=== PATIENT | male | born 1960 | race African-American/Black ===

== ENCOUNTER 2016-10-10 07:22 | Emergency (ER) | payer MEDICAID, OTHER ==
[~2016-10-10] VITALS: Ht 177.8 cm; Wt 90.0 kg
[2016-10-10] MEDS ORDERED: METHYLPREDNISOLONE SOD SUCC 125 MG/2 ML VIAL IV STA (07:33)
[2016-10-10] MEDS ORDERED: IPRATROPIUM/ALBUTEROL 0.5-3(2.5)MG/3ML NEB HHN ONE (07:45)
[2016-10-10] MEDS ORDERED: ASPIRIN 81MG TABLET PO ONE (07:45)
[2016-10-10 08:04] LABS: MEAN CORPUSCULAR HEMOGLOBIN 22.9 pg (28.0-32.0); MEAN CORPUSCULAR HGB CONC 32.6 g/dL (31.0-37.0); MEAN CORPUSCULAR VOLUME 70.2 fL (80.0-94.0); MEAN PLATELET VOLUME 8.4 fl (7.4-10.4); PLATELET 231 x1000/uL (130-400); RED BLOOD CELL COUNT 6.13 mill/uL (4.7-6.1); RED CELL DISTRIBUTION WIDTH 15.6 % (11.6-14.6); WHITE BLOOD COUNT 6.8 x1000/uL (4.5-11.0)
[2016-10-10 08:05] LABS: DIFFERENTIAL COMMENT 1
[2016-10-10 08:12] LABS: PROTHROMBIN TIME 10.4 sec
[2016-10-10 08:18] LABS: ALANINE AMINOTRANSFERASE 21 IU/L (13-61); ALBUMIN 3.7 g/dL (3.4-5.0); ANION GAP 12; CALCIUM 9.5 mg/dL (8.5-10.1); CARBON DIOXIDE 30 mEq/L (21-32); CHLORIDE 102 mEq/L (98-107); INDEX HEMOLYSI 1 (1-3); INDEX ICTERIC 1 (1-4); INDEX LIPEMIC 1 (1-3); NT PRO B-TYPE NATRIURETIC PEP 42 pg/mL (5-125); TROPONIN I < 0.02 ng/mL (0.00-0.04); UREA NITROGEN BLOOD 12 mg/dL (7-21); eGFR > 60 mL/min (>60)
[2016-10-10 08:36] LABS: CLARITY URINE CLEAR (CLEAR); COLOR URINE YELLOW (YELLOW); GLUCOSE URINE NEGATIVE (NEGATIVE); KETONES URINE NEGATIVE (NEGATIVE); LEUKOCYTE ESTERASE URINE NEGATIVE (NEGATIVE); NITRITE URINE NEGATIVE (NEGATIVE); OCCULT BLOOD URINE NEGATIVE (NEGATIVE); PROTEIN URINE NEGATIVE (NEGATIVE); SPECIFIC GRAVITY URINE 1.016 (1.005-1.030); UROBILINOGEN URINE 0.2 E.U./dL (0.2-1.0)
[2016-10-10 08:59] VITALS: BP 147/93
[2016-10-10 09:17] LABS: ANISOCYTOSIS 1+; HYPOCHROMASIA 1+; PLATELET ESTIMATE NORMAL
== END 2016-10-10 12:01 | disposition home or self-care (01) ==
LOC: ER 07:34
DX: R06.02 Shortness of breath (principal); J45.909 Unspecified asthma, uncomplicated
CPT/HCPCS: 36415; 71010; 80053; 81003; 83880; 84484; 85025; 85610; 93005; 94640; 96374; 99285; J2930; Z7610; J7620

== ENCOUNTER 2017-09-05 20:55 | Emergency (ER) | payer BC, OTHER ==
[~2017-09-05] VITALS: Ht 170.2 cm; Wt 111.0 kg
[2017-09-05] MEDS ORDERED: IPRATROPIUM BROMIDE (0.02%) 0.5MG/2.5ML NEB HHN STA (21:17)
[2017-09-05] MEDS ORDERED: METHYLPREDNISOLONE SOD SUCC 125 MG/2 ML VIAL IV STA (21:17)
[2017-09-05] MEDS: ALBUTEROL (0.083%) 2.5MG/3ML NEB HHN SCH ×3 (22:13→23:15)
[2017-09-06 00:39] VITALS: BP 169/88
[2017-09-06] MEDS ORDERED: ALBUTEROL (0.083%) 2.5MG/3ML NEB HHN ONE (01:00)
[2017-09-06] MEDS ORDERED: ACETAMINOPHEN 325MG TABLET PO ONE (01:45)
== END 2017-09-06 01:58 | disposition home or self-care (01) ==
LOC: ER 21:27 → CANBEDREQ 09-06 05:53
DX: J44.1 Chronic obstructive pulmonary disease with (acute) exacerbation (principal)
CPT/HCPCS: 94640; 96374; 99285; J2930; J7611

== ENCOUNTER 2017-10-05 02:18 | Inpatient (IN) | payer BC, MEDICAID ==
[~2017-10-05] VITALS: Ht 170.2 cm; Wt 125.8 kg
[2017-10-05] MEDS ORDERED: ALBUTEROL (0.083%) 2.5MG/3ML NEB HHN STA ×2 (02:42→05:25)
[2017-10-05] MEDS ORDERED: MAGNESIUM 2 G PREMIX 50 ML IV STA (02:42)
[2017-10-05] MEDS ORDERED: METHYLPREDNISOLONE SOD SUCC 125 MG/2 ML VIAL IV STA (02:42)
[2017-10-05] MEDS ORDERED: IPRATROPIUM BROMIDE (0.02%) 0.5MG/2.5ML NEB HHN STA ×2 (02:42→05:25)
[2017-10-05] MEDS ORDERED: ALBUTEROL (0.5%) 2.5MG/0.5ML NEB HHN ONE (03:00)
[2017-10-05 06:39] VITALS: BP 168/94
[2017-10-05 08:00] VITALS: BP 167/93
[2017-10-05 12:00] VITALS: BP 172/98
[2017-10-05 13:30] LABS: HEMATOCRIT. 44.4 % (42.0-52.0); HEMOGLOBIN. 14.6 g/dL (14.0-18.0); MEAN CORPUSCULAR HEMOGLOBIN 23.1 pg (28.0-32.0); MEAN CORPUSCULAR VOLUME 69.9 fL (80.0-94.0); MEAN PLATELET VOLUME 8.6 fl (7.4-10.4); PLATELET 229 x1000/uL (130-400); RED BLOOD CELL COUNT 6.35 mill/uL (4.7-6.1); RED CELL DISTRIBUTION WIDTH 17.2 % (11.6-14.6)
[2017-10-05] MEDS ORDERED: ACETAMINOPHEN 325MG TABLET PO PRN (13:45)
[2017-10-05] MEDS ORDERED: ENOXAPARIN 40MG/0.4ML SYR SUBCUT SCH (13:45)
[2017-10-05] MEDS ORDERED: ONDANSETRON HCL 4MG/2ML VIAL IV PRN (13:45)
[2017-10-05] MEDS ORDERED: IPRATROPIUM/ALBUTEROL 0.5-3(2.5)MG/3ML NEB INH PRN (13:45)
[2017-10-05 14:14] LABS: CHLORIDE 104 mEq/L (98-107)
[2017-10-05] MEDS: METHYLPREDNISOLONE SOD SUCC 40 MG/ML VIAL IV SCH ×2 (14:36→20:36)
[2017-10-05] MEDS: PREDNISONE 20MG TABLET PO SCH (14:37)
[2017-10-05] MEDS ORDERED: LEVOFLOXACIN 500MG PREMIX 100 ML IV SCH (15:00)
[2017-10-05 15:25] LABS: BG CARBOXYHEMOGLOBIN 1.1 % (0.5-1.5); BG DEOXYHEMOGLOBIN 9.1 % (0.0-5.0); BG FRACTION INSPIRED OXYGEN 21; BG HCO3 ACT 24.4 mmol/L (22.0-26.0); BG METHEMOGLOBIN 0.2 % (0.0-1.5); BG OXYGEN SATURATION 90.8 % (92.0-98.5); BG OXYHEMOGLOBIN 89.6 % (94.0-97.0); BG PCO2 39.1 mmHg (35.0-45.0); BG PH 7.413 (7.350-7.450); BG PO2 59.9 mmHg (75.0-100.0); BG SAMPLE SITE RIGHT RADIAL; BG TOTAL HEMOGLOBIN 14.6 g/dL (12.0-18.0); BG VENT MODE ROOM AIR
[2017-10-05 16:00] VITALS: BP 161/97
[2017-10-05 16:00] LABS: CREATINE KINASE 728 IU/L (39-308)
[2017-10-05] MEDS: HYDROCODONE/ACETAMINOPHEN 5/325MG TABLET PO PRN ×2 (16:36→20:40)
[2017-10-05] MEDS: ENOXAPARIN 30MG/0.3ML SYR SUBCUT SCH (16:37)
[2017-10-05 20:00] VITALS: BP 165/108
[2017-10-05] MEDS: CLONIDINE 0.1MG TABLET PO PRN (20:36)
[2017-10-05 22:00] VITALS: BP 137/91
[2017-10-05] MEDS: AMLODIPINE 5MG TABLET PO SCH (23:04)
[2017-10-05 23:26] LABS: CREATINE KINASE 653 IU/L (39-308)
[2017-10-06] VITALS (9 sets, daily range): BP systolic 143–161; BP diastolic 63–99
[2017-10-06 00:16] LABS: PLATELET ESTIMATE NORMAL
[2017-10-06] MEDS: IPRATROPIUM/ALBUTEROL 0.5-3(2.5)MG/3ML NEB HHN SCH ×6 (00:27→21:40)
[2017-10-06] MEDS: HYDROCODONE/ACETAMINOPHEN 5/325MG TABLET PO PRN ×3 (01:07→22:11)
[2017-10-06] MEDS: CLONIDINE 0.1MG TABLET PO PRN (05:13)
[2017-10-06 05:59] LABS: HEMATOCRIT. 39.3 % (42.0-52.0); HEMOGLOBIN. 12.8 g/dL (14.0-18.0); MEAN CORPUSCULAR HEMOGLOBIN 22.5 pg (28.0-32.0); MEAN CORPUSCULAR VOLUME 69.4 fL (80.0-94.0); MEAN PLATELET VOLUME 9.3 fl (7.4-10.4); PLATELET 227 x1000/uL (130-400); RED BLOOD CELL COUNT 5.67 mill/uL (4.7-6.1); RED CELL DISTRIBUTION WIDTH 16.9 % (11.6-14.6)
[2017-10-06] MEDS: METHYLPREDNISOLONE SOD SUCC 40 MG/ML VIAL IV SCH ×3 (06:18→22:11)
[2017-10-06] MEDS: ENOXAPARIN 30MG/0.3ML SYR SUBCUT SCH ×2 (06:18→17:57)
[2017-10-06 06:56] LABS: CHLORIDE 102 mEq/L (98-107)
[2017-10-06 07:13] LABS: LDL CHOLESTEROL 80 mg/dL (5-100)
[2017-10-06 07:15] LABS: HDL CHOLESTEROL 63 mg/dL (40-59)
[2017-10-06 07:16] LABS: T4 FREE 1.16 ng/dL (0.76-1.46)
[2017-10-06] MEDS: PREDNISONE 20MG TABLET PO SCH (09:47)
[2017-10-06] MEDS: AMLODIPINE 5MG TABLET PO SCH ×2 (09:47→22:09)
[2017-10-06] MEDS: LEVOFLOXACIN 500MG PREMIX 100 ML IV SCH (16:04)
[2017-10-06 17:59] LABS: PLATELET ESTIMATE NORMAL
[2017-10-07] VITALS: BP 144/84
[2017-10-07] MEDS: IPRATROPIUM/ALBUTEROL 0.5-3(2.5)MG/3ML NEB HHN SCH ×5 (01:32→15:01)
[2017-10-07 04:00] VITALS: BP 153/99
[2017-10-07] MEDS: HYDROCODONE/ACETAMINOPHEN 5/325MG TABLET PO PRN ×4 (05:00→18:12)
[2017-10-07] MEDS: ENOXAPARIN 30MG/0.3ML SYR SUBCUT SCH ×2 (06:32→18:00)
[2017-10-07] MEDS: METHYLPREDNISOLONE SOD SUCC 40 MG/ML VIAL IV SCH ×2 (06:32→13:25)
[2017-10-07 08:00] VITALS: BP 135/86
[2017-10-07] MEDS: AMLODIPINE 5MG TABLET PO SCH (09:02)
[2017-10-07] MEDS: PREDNISONE 20MG TABLET PO SCH (09:02)
[2017-10-07 12:00] VITALS: BP 145/90
[2017-10-07 15:52] LABS: HEMATOCRIT. 43.8 % (42.0-52.0); HEMOGLOBIN. 14.4 g/dL (14.0-18.0); MEAN CORPUSCULAR HEMOGLOBIN 22.7 pg (28.0-32.0); MEAN CORPUSCULAR VOLUME 69.1 fL (80.0-94.0); MEAN PLATELET VOLUME 8.8 fl (7.4-10.4); PLATELET 259 x1000/uL (130-400); RED BLOOD CELL COUNT 6.34 mill/uL (4.7-6.1); RED CELL DISTRIBUTION WIDTH 16.9 % (11.6-14.6)
[2017-10-07 15:58] LABS: CHLORIDE 101 mEq/L (98-107)
[2017-10-07 16:00] VITALS: BP 149/76
[2017-10-07] MEDS: LEVOFLOXACIN 500MG PREMIX 100 ML IV SCH (16:03)
[2017-10-07 21:42] LABS: ATYPICAL LYMPHOCYTES 3; PLATELET ESTIMATE NORMAL
== END 2017-10-07 18:50 | disposition home or self-care (01) | DRG 189 ==
LOC: ER 02:18 → 5EST 02:57 → ENRESERV 03:41 → 7WST 10-06 23:09
PROVIDERS: ADMIT Internal Medicine; ATTEND Internal Medicine
PROC: 5A09357 Assistance with Respiratory Ventilation, Less than 24 Consecutive Hours, Continuous Positive Airway Pressure (ICD-10-PCS; principal; 2017-10-05)
DX: J96.20 Acute and chronic respiratory failure, unspecified whether with hypoxia or hypercapnia (principal); J45.901 Unspecified asthma with (acute) exacerbation; J44.9 Chronic obstructive pulmonary disease, unspecified; Z68.41 Body mass index [BMI] 40.0-44.9, adult; I10 Essential (primary) hypertension; E66.9 Obesity, unspecified; Z79.899 Other long term (current) drug therapy
CPT/HCPCS: 36415; 36600; 71045; 80048; 80053; 80061; 82375; 82550; 82805; 84439; 84443; 84484; 85025; 93306; 93970; 94618; 94640; 94644; 96365; 96366; 96375; 99285; J1650; J1956; J2920; J2930; J3475; J7040; J7050; J7512; J7611; J7620

== ENCOUNTER 2017-10-28 12:16 | Inpatient (IN) | payer BC, MEDICAID ==
[~2017-10-28] VITALS: Ht 172.7 cm; Wt 125.2 kg
[2017-10-28] MEDS ORDERED: ALBUTEROL (0.083%) 2.5MG/3ML NEB HHN STA ×2 (12:25→14:52)
[2017-10-28] MEDS ORDERED: METHYLPREDNISOLONE SOD SUCC 125 MG/2 ML VIAL IV STA (12:25)
[2017-10-28] MEDS ORDERED: IPRATROPIUM BROMIDE (0.02%) 0.5MG/2.5ML NEB HHN STA (12:25)
[2017-10-28] MEDS ORDERED: LORAZEPAM 2MG/ML CPJ IV ONE (12:30)
[2017-10-28] MEDS ORDERED: ALBUTEROL (0.5%) 2.5MG/0.5ML NEB HHN ONE (12:45)
[2017-10-28 13:16] LABS: HEMATOCRIT. 37.2 % (42.0-52.0); HEMOGLOBIN. 12.2 g/dL (14.0-18.0); MEAN CORPUSCULAR HEMOGLOBIN 22.8 pg (28.0-32.0); MEAN CORPUSCULAR VOLUME 69.4 fL (80.0-94.0); MEAN PLATELET VOLUME 8.6 fl (7.4-10.4); PLATELET 177 x1000/uL (130-400); RED BLOOD CELL COUNT 5.36 mill/uL (4.7-6.1); RED CELL DISTRIBUTION WIDTH 16.3 % (11.6-14.6)
[2017-10-28 13:20] LABS: CHLORIDE 107 mEq/L (98-107)
[2017-10-28 13:21] LABS: PROTHROMBIN TIME 10.3 sec (9.4-11.6)
[2017-10-28 13:38] LABS: PLATELET ESTIMATE NORMAL
[2017-10-28] MEDS ORDERED: GUAIFENESIN 200MG/10ML SUGAR FREE UDC PO PRN (17:30)
[2017-10-28] MEDS ORDERED: IPRATROPIUM/ALBUTEROL 0.5-3(2.5)MG/3ML NEB INH PRN (17:30)
[2017-10-28] MEDS ORDERED: ACETAMINOPHEN 325MG TABLET PO PRN (17:30)
[2017-10-28] MEDS ORDERED: DIPHENHYDRAMINE 50MG/ML VIAL IV PRN (17:30)
[2017-10-28] MEDS ORDERED: ONDANSETRON HCL 4MG/2ML VIAL IV PRN (17:30)
[2017-10-28 18:30] LABS: BG CARBOXYHEMOGLOBIN 0.6 % (0.5-1.5); BG DEOXYHEMOGLOBIN 4.6 % (0.0-5.0); BG FRACTION INSPIRED OXYGEN 32; BG HCO3 ACT 25.6 mmol/L (22.0-26.0); BG METHEMOGLOBIN 0.3 % (0.0-1.5); BG OXYGEN SATURATION 95.4 % (92.0-98.5); BG OXYHEMOGLOBIN 94.5 % (94.0-97.0); BG PCO2 45.1 mmHg (35.0-45.0); BG PH 7.372 (7.350-7.450); BG SAMPLE SITE RIGHT RADIAL; BG TOTAL HEMOGLOBIN 13.5 g/dL (12.0-18.0); BG VENT MODE NASAL CANNULA
[2017-10-28 19:11] VITALS: BP 126/86
[2017-10-28 20:00] VITALS: BP 143/88
[2017-10-28] MEDS: METHYLPREDNISOLONE SOD SUCC 40 MG/ML VIAL IV SCH (21:46)
[2017-10-28] MEDS: FAMOTIDINE 20MG/2ML VIAL IV SCH (21:46)
[2017-10-28] MEDS: ENOXAPARIN 30MG/0.3ML SYR SUBCUT SCH (21:48)
[2017-10-28 22:00] VITALS: BP 135/78
[2017-10-28] MEDS: CLONIDINE 0.1MG TABLET PO PRN (22:06)
[2017-10-29] VITALS (12 sets, daily range): BP systolic 128–157; BP diastolic 77–106
[2017-10-29] MEDS ORDERED: MONTELUKAST SODIUM 10MG TABLET PO SCH
[2017-10-29] MEDS: IPRATROPIUM/ALBUTEROL 0.5-3(2.5)MG/3ML NEB HHN SCH ×6 (00:32→20:37)
[2017-10-29] MEDS: HYDROCODONE/ACETAMINOPHEN 5/325MG TABLET PO PRN ×4 (03:22→23:22)
[2017-10-29] MEDS: METHYLPREDNISOLONE SOD SUCC 40 MG/ML VIAL IV SCH ×3 (05:40→21:01)
[2017-10-29 05:54] LABS: HEMATOCRIT. 37.6 % (42.0-52.0); HEMOGLOBIN. 12.2 g/dL (14.0-18.0); MEAN CORPUSCULAR HEMOGLOBIN 22.6 pg (28.0-32.0); MEAN CORPUSCULAR VOLUME 69.5 fL (80.0-94.0); MEAN PLATELET VOLUME 8.6 fl (7.4-10.4); PLATELET 190 x1000/uL (130-400); RED BLOOD CELL COUNT 5.41 mill/uL (4.7-6.1); RED CELL DISTRIBUTION WIDTH 16.7 % (11.6-14.6)
[2017-10-29 06:22] LABS: CLARITY URINE CLEAR (CLEAR); COLOR URINE YELLOW (YELLOW); KETONES URINE NEGATIVE (NEGATIVE); LEUKOCYTE ESTERASE URINE NEGATIVE (NEGATIVE); NITRITE URINE NEGATIVE (NEGATIVE); OCCULT BLOOD URINE NEGATIVE (NEGATIVE); PROTEIN URINE NEGATIVE (NEGATIVE); SPECIFIC GRAVITY URINE 1.022 (1.005-1.030)
[2017-10-29 07:00] LABS: CHLORIDE 104 mEq/L (98-107)
[2017-10-29 07:08] LABS: LDL CHOLESTEROL 92 mg/dL (5-100)
[2017-10-29 07:09] LABS: HDL CHOLESTEROL 70 mg/dL (40-59); T4 FREE 1.28 ng/dL (0.76-1.46)
[2017-10-29 07:23] LABS: *AMPHETAMINES SCREEN URINE NEGATIVE (NEGATIVE); *BARBITURATES SCREEN URINE NEGATIVE (NEGATIVE); *BENZODIAZEPINES SCREEN URINE NEGATIVE (NEGATIVE); *COCAINE SCREEN URINE NEGATIVE (NEGATIVE)
[2017-10-29 07:24] LABS: CANNABINOID URINE SCREEN PRESUMTIVE POSITIVE (NEGATIVE); METHADONE URINE SCREEN NEGATIVE (NEGATIVE); OPIATES URINE SCREEN PRESUMTIVE POSITIVE (NEGATIVE); PHENCYCLIDINE URINE SCREEN NEGATIVE (NEGATIVE)
[2017-10-29] MEDS: BUDESONIDE 0.5MG/2ML NEB HHN SCH (08:33)
[2017-10-29] MEDS: ENOXAPARIN 30MG/0.3ML SYR SUBCUT SCH ×2 (09:00→21:01)
[2017-10-29] MEDS: FAMOTIDINE 20MG/2ML VIAL IV SCH ×2 (09:00→21:01)
[2017-10-29] MEDS: MONTELUKAST SODIUM 10MG TABLET PO SCH (17:01)
[2017-10-29 20:14] LABS: PLATELET ESTIMATE NORMAL
[2017-10-30] VITALS (12 sets, daily range): BP systolic 118–154; BP diastolic 67–95
[2017-10-30] MEDS: IPRATROPIUM/ALBUTEROL 0.5-3(2.5)MG/3ML NEB HHN SCH ×6 (00:55→21:23)
[2017-10-30] MEDS: BUDESONIDE 0.5MG/2ML NEB HHN SCH ×3 (00:55→21:23)
[2017-10-30] MEDS: HYDROCODONE/ACETAMINOPHEN 5/325MG TABLET PO PRN ×3 (04:08→17:43)
[2017-10-30] MEDS: METHYLPREDNISOLONE SOD SUCC 40 MG/ML VIAL IV SCH ×3 (06:05→21:38)
[2017-10-30 07:12] LABS: HEMATOCRIT 36.5 % (42.0-52.0); MEAN CORPUSCULAR HEMOGLOBIN 22.7 pg (28.0-32.0); MEAN CORPUSCULAR VOLUME 68.8 fL (80.0-94.0); PLATELET 176 x1000/uL (130-400); RED CELL DISTRIBUTION WIDTH 16.5 % (11.6-14.6)
[2017-10-30 07:39] LABS: CHLORIDE 104 mEq/L (98-107)
[2017-10-30] MEDS: ENOXAPARIN 30MG/0.3ML SYR SUBCUT SCH ×2 (08:36→21:39)
[2017-10-30] MEDS: FAMOTIDINE 20MG/2ML VIAL IV SCH ×2 (08:36→22:04)
[2017-10-30] MEDS: MORPHINE SULFATE 4 MG/ML CPJ (NOT FOR IM USE) IV PRN ×2 (13:44→19:50)
[2017-10-30 14:28] LABS: BG BASE EXCESS 0.6 mmol/L (-2.0-2.0); BG CARBOXYHEMOGLOBIN 0.9 % (0.5-1.5); BG DEOXYHEMOGLOBIN 3.6 % (0.0-5.0); BG FRACTION INSPIRED OXYGEN 21; BG HCO3 ACT 23.9 mmol/L (22.0-26.0); BG METHEMOGLOBIN 0.1 % (0.0-1.5); BG OXYGEN SATURATION 96.4 % (92.0-98.5); BG OXYHEMOGLOBIN 95.4 % (94.0-97.0); BG PCO2 34.6 mmHg (35.0-45.0); BG PH 7.458 (7.350-7.450); BG SAMPLE SITE RIGHT BRACHIAL; BG TOTAL HEMOGLOBIN 14.2 g/dL (12.0-18.0); BG VENT MODE ROOM AIR
[2017-10-30] MEDS: CLONIDINE 0.1MG TABLET PO PRN (16:18)
[2017-10-30] MEDS: MONTELUKAST SODIUM 10MG TABLET PO SCH (16:18)
[2017-10-31] VITALS (10 sets, daily range): BP systolic 120–163; BP diastolic 62–99
[2017-10-31] MEDS: CLONIDINE 0.1MG TABLET PO PRN (00:07)
[2017-10-31] MEDS ORDERED: LEVOFLOXACIN 500MG TABLET PO SCH (00:15)
[2017-10-31] MEDS: IPRATROPIUM/ALBUTEROL 0.5-3(2.5)MG/3ML NEB HHN SCH ×5 (00:49→16:23)
[2017-10-31] MEDS: MORPHINE SULFATE 4 MG/ML CPJ (NOT FOR IM USE) IV PRN ×2 (01:09→14:05)
[2017-10-31] MEDS: METHYLPREDNISOLONE SOD SUCC 40 MG/ML VIAL IV SCH ×2 (05:30→14:01)
[2017-10-31 07:18] LABS: CHLORIDE 102 mEq/L (98-107)
[2017-10-31 08:03] LABS: HEMATOCRIT 37.3 % (42.0-52.0); HEMOGLOBIN 12.1 g/dL (14.0-18.0); MEAN CORPUSCULAR HEMOGLOBIN 22.6 pg (28.0-32.0); MEAN CORPUSCULAR VOLUME 69.6 fL (80.0-94.0); PLATELET 200 x1000/uL (130-400); RED BLOOD CELL COUNT 5.36 mill/uL (4.7-6.1); RED CELL DISTRIBUTION WIDTH 16.7 % (11.6-14.6)
[2017-10-31] MEDS: HYDROCODONE/ACETAMINOPHEN 5/325MG TABLET PO PRN (08:29)
[2017-10-31] MEDS: ENOXAPARIN 30MG/0.3ML SYR SUBCUT SCH (08:30)
[2017-10-31] MEDS: BUDESONIDE 0.5MG/2ML NEB HHN SCH (09:35)
[2017-10-31] MEDS: FAMOTIDINE 20MG/2ML VIAL IV SCH (10:58)
== END 2017-10-31 17:10 | disposition home or self-care (01) | DRG 189 ==
LOC: ER 13:01 → 3WST 14:52 → CANRESERV 17:51 → ENRESERV 17:51 → EDBEDREQ 18:08
PROVIDERS: ADMIT Internal Medicine; ATTEND Internal Medicine
PROC: 5A09357 Assistance with Respiratory Ventilation, Less than 24 Consecutive Hours, Continuous Positive Airway Pressure (ICD-10-PCS; principal; 2017-10-28)
DX: J96.00 Acute respiratory failure, unspecified whether with hypoxia or hypercapnia (principal); E66.2 Morbid (severe) obesity with alveolar hypoventilation; J45.901 Unspecified asthma with (acute) exacerbation; J44.9 Chronic obstructive pulmonary disease, unspecified; Z68.41 Body mass index [BMI] 40.0-44.9, adult; I10 Essential (primary) hypertension; D64.9 Anemia, unspecified
CPT/HCPCS: 36415; 36600; 71045; 80048; 80053; 80061; 80305; 81003; 82375; 82805; 83880; 84439; 84443; 84484; 85025; 85027; 85379; 85610; 93005; 93970; 94640; 94644; 94660; 97162; J1650; J2060; J2270; J2920; J2930; J3490; J7611; J7620; J7626